=== PATIENT | male | born 1980 | race Two or more races ===

== ENCOUNTER 2021-12-20 23:43 | Emergency (ER) | payer MEDICAID ==
[~2021-12-20] VITALS: Ht 157.5 cm; Wt 87.5 kg
[2021-12-21 00:31] VITALS: BP 145/95
[2021-12-21] MEDS ORDERED: IBUP-1957 PO (00:42)
[2021-12-21] MEDS ORDERED: PRED50TA PO (00:42)
[2021-12-21] MEDS ORDERED: CARI350T PO (00:42)
[2021-12-21] MEDS ORDERED: IBUPROFEN 400 MG TABLET PO ONE (01:00)
[2021-12-21] MEDS ORDERED: CARISOPRODOL 350 MG TABLET PO ONE (01:00)
[2021-12-21] MEDS ORDERED: DEXAMETHASONE SOD PHOSPHATE 4 MG/ML VIAL IM ONE (01:00)
[2021-12-21] MEDS ORDERED: DEXAMETHASONE SOD PHOSPHATE 10 MG/ML VIAL ONE (01:03)
[2021-12-21] MEDS ORDERED: CARISOPRODOL 350 MG TABLET ONE (01:03)
[2021-12-21] MEDS ORDERED: IBUPROFEN 400 MG TABLET ONE (01:03)
== END 2021-12-21 01:10 | disposition home or self-care (01) ==
LOC: ER 23:48
DX: G44.209 Tension-type headache, unspecified, not intractable (principal); M62.838 Other muscle spasm; M54.12 Radiculopathy, cervical region; Z79.899 Other long term (current) drug therapy
CPT/HCPCS: 96372; 99283; J1100